=== PATIENT | female | born 1980 | race Two or more races ===

== ENCOUNTER 2016-09-25 12:20 | Observation (INO) | payer MEDICAID ==
[~2016-09-25 12:20] MED LIST: ACET-1079 PO
[2016-09-25] MEDS ORDERED: PREN-153 OR (13:05)
[2016-09-25] MEDS ORDERED: ASPI81CH43 GT (13:06)
[2016-09-25] MEDS ORDERED: DOCU-94 PO (13:06)
[2016-09-25 13:19] LABS: Urine Bilirubin Negative (Negative); Urine Color Yellow (Yellow); Urine Glucose Normal (Normal); Urine Ketone Negative (Negative); Urine Nitrite Negative (Negative); Urine RBC 8 /hpf (0 - 4); Urine Squamous Epithelial Cell FEW /hpf (<5); Urine Urobilinogen Normal (Negative); Urine pH 7.5 (5.0-8.0)
[2016-09-25 13:20] LABS: Basophils # (auto) 0 uL; Basophils % (auto) 0.1 % (0.0-2.0); Eosinophils # (auto) 0.1 uL; Eosinophils % (auto) 0.5 % (0.0-7.0); Hematocrit 36.2 % (36.0-46.0); Hemoglobin 12.3 g/dL (12.2-16.2); Lymphocytes # (auto) 1.2 uL; Lymphocytes % (auto) 9.8 % (10.0-50.0); Mean Corpuscular Hemoglobin 32.2 pg (28.0-32.0); Mean Corpuscular Hgb Conc. 34.1 g/dL (32.0-36.0); Mean Corpuscular Volume 94.6 fL (80.0-100.0); Mean Platelet Volume 9.8 fL (7.4-10.4); Monocytes # (auto) 0.9 uL; Monocytes % (auto) 7.3 % (0.0-12.0); Neutrophils # (auto) 10.1 uL; Neutrophils % (auto) 82.3 % (37.0-80.0); Platelet Count (auto) 213 10^3/uL (140-450); Red Cell Distribution Width 13.3 % (11.6-16.0); White Blood Cell 12.2 10^3/uL (4.4-10.8)
[2016-09-25 13:20] LABS: Urine Blood 2+ /uL (Negative)
[2016-09-25 13:39] LABS: Albumin 2.6 g/dL (3.4-5.0); BUN/Creatinine Ratio 15.4; Bilirubin, Total 0.1 mg/dL (0.2-1.0); Calcium 8.8 mg/dL (8.5-10.1); Potassium 4.4 mmol/L (3.5-5.1); Total Protein 6.4 g/dL (6.4-8.2); Uric Acid 3.7 mg/dL (2.6-6.0)
[2016-09-25 13:47] LABS: INR 0.94 (0.9-1.15); Partial Thromboplastin Time 27.5 sec (22.64-33.71); Prothrombin Time 9.7 sec (9.37-12.3)
== END 2016-09-25 14:10 | disposition home or self-care (01) | DRG 566 ==
LOC: LDRP 12:20
PROVIDERS: ADMIT Specialist; ATTEND Specialist
DX: O13.3 Gestational [pregnancy-induced] hypertension without significant proteinuria, third trimester (principal); Z3A.30 30 weeks gestation of pregnancy
CPT/HCPCS: 36415; 59025; 76818; 80053; 81001; 81002; 84550; 85025; 85379; 85610; 85730; G0378

== ENCOUNTER 2016-09-28 10:55 | Observation (INO) | payer MEDICAID ==
[~2016-09-28 10:55] MED LIST changes: +ASPI81CH43 GT; +DOCU-94 PO; +PREN-153 OR
== END 2016-09-28 12:15 | disposition home or self-care (01) | DRG 955 ==
LOC: LDRP 10:55
PROVIDERS: ADMIT Specialist; ATTEND Specialist
DX: O26.899 Other specified pregnancy related conditions, unspecified trimester (principal)
CPT/HCPCS: 59025; 76818; 81002; G0378

== ENCOUNTER 2016-10-01 14:00 | Observation (INO) | payer MEDICAID | END 2016-10-01 15:50 | disposition home or self-care (01) | DRG 566 | LOC: LDRP 14:00 | PROVIDERS: ADMIT Specialist; ATTEND Specialist | DX: O62.9 Abnormality of forces of labor, unspecified (principal); O26.893 Other specified pregnancy related conditions, third trimester; M54.5 Low back pain; R11.0 Nausea; Z3A.31 31 weeks gestation of pregnancy | CPT/HCPCS: 59025; 76818; 81002; G0378 ==

== ENCOUNTER 2016-10-04 10:50 | Observation (INO) | payer MEDICAID | END 2016-10-04 13:30 | disposition home or self-care (01) | DRG 566 | LOC: LDRP 10:50 | PROVIDERS: ADMIT Obstetrics & Gynecology; ATTEND Obstetrics & Gynecology | DX: O42.913 Preterm premature rupture of membranes, unspecified as to length of time between rupture and onset of labor, third trimester (principal); O60.03 Preterm labor without delivery, third trimester; O26.893 Other specified pregnancy related conditions, third trimester; R51 Headache; O13.3 Gestational [pregnancy-induced] hypertension without significant proteinuria, third trimester; O62.9 Abnormality of forces of labor, unspecified; Z3A.32 32 weeks gestation of pregnancy | CPT/HCPCS: 59025; 76818; 81002; G0378 ==

== ENCOUNTER 2016-10-07 18:53 | Observation (INO) | payer MEDICAID ==
[2016-10-07] MEDS ORDERED: ACETAMINOPHEN 325 MG TAB PO ONE ×2 (20:31→20:45)
[2016-10-07] MEDS ORDERED: NIFEdipine 10 MG CAP ONE (20:31)
[2016-10-07] MEDS ORDERED: NIFEdipine 10 MG CAP PO ONE (20:45)
[2016-10-07 21:02] LABS: Basophils # (auto) 0 uL; Basophils % (auto) 0.2 % (0.0-2.0); Eosinophils # (auto) 0.1 uL; Eosinophils % (auto) 0.9 % (0.0-7.0); Hematocrit 37.5 % (36.0-46.0); Hemoglobin 12.9 g/dL (12.2-16.2); Lymphocytes # (auto) 1.8 uL; Lymphocytes % (auto) 16.8 % (10.0-50.0); Mean Corpuscular Hemoglobin 32.1 pg (28.0-32.0); Mean Corpuscular Hgb Conc. 34.4 g/dL (32.0-36.0); Mean Corpuscular Volume 93.3 fL (80.0-100.0); Mean Platelet Volume 10.6 fL (7.4-10.4); Monocytes # (auto) 0.6 uL; Monocytes % (auto) 5.2 % (0.0-12.0); Neutrophils # (auto) 8.4 uL; Neutrophils % (auto) 76.9 % (37.0-80.0); Platelet Count (auto) 192 10^3/uL (140-450); Red Cell Distribution Width 13.9 % (11.6-16.0); White Blood Cell 10.9 10^3/uL (4.4-10.8)
[2016-10-07 21:25] LABS: INR 0.95 (0.9-1.15); Partial Thromboplastin Time 28.4 sec (22.64-33.71); Prothrombin Time 9.8 sec (9.37-12.3)
[2016-10-07 21:42] LABS: Albumin 2.7 g/dL (3.4-5.0); BUN/Creatinine Ratio 14.8; Bilirubin, Total 0.1 mg/dL (0.2-1.0); Calcium 8.6 mg/dL (8.5-10.1); Potassium 3.9 mmol/L (3.5-5.1); Total Protein 6.7 g/dL (6.4-8.2); Uric Acid 3.5 mg/dL (2.6-6.0)
== END 2016-10-07 22:07 | disposition home or self-care (01) | DRG 566 ==
LOC: LDRP 18:53
PROVIDERS: ADMIT Obstetrics & Gynecology; ATTEND Obstetrics & Gynecology
DX: O26.893 Other specified pregnancy related conditions, third trimester (principal); O09.523 Supervision of elderly multigravida, third trimester; M54.9 Dorsalgia, unspecified; R51 Headache; O62.9 Abnormality of forces of labor, unspecified; O13.3 Gestational [pregnancy-induced] hypertension without significant proteinuria, third trimester; Z3A.32 32 weeks gestation of pregnancy
CPT/HCPCS: 36415; 59025; 76818; 80053; 81002; 84550; 85025; 85362; 85610; 85730; G0378

== ENCOUNTER 2016-10-10 11:00 | Observation (INO) | payer MEDICAID ==
[~2016-10-10] VITALS: Ht 165.1 cm; Wt 95.3 kg
[2016-10-10] MEDS ORDERED: LABETALOL HCL 200 MG TAB PO ONE (13:15)
[2016-10-10 13:32] LABS: Basophils # (auto) 0 uL; Basophils % (auto) 0.3 % (0.0-2.0); Eosinophils # (auto) 0 uL; Eosinophils % (auto) 0.2 % (0.0-7.0); Hemoglobin 13.3 g/dL (12.2-16.2); Lymphocytes # (auto) 1.3 uL; Lymphocytes % (auto) 11.7 % (10.0-50.0); Mean Corpuscular Hemoglobin 32.5 pg (28.0-32.0); Mean Corpuscular Hgb Conc. 35.1 g/dL (32.0-36.0); Mean Corpuscular Volume 92.7 fL (80.0-100.0); Mean Platelet Volume 10.3 fL (7.4-10.4); Monocytes # (auto) 0.6 uL; Monocytes % (auto) 5.7 % (0.0-12.0); Neutrophils # (auto) 8.8 uL; Neutrophils % (auto) 82.1 % (37.0-80.0); Platelet Count (auto) 189 10^3/uL (140-450); Red Cell Distribution Width 13.3 % (11.6-16.0); White Blood Cell 10.8 10^3/uL (4.4-10.8)
[2016-10-10 13:44] LABS: Albumin 2.9 g/dL (3.4-5.0); BUN/Creatinine Ratio 11.7; Calcium 8.8 mg/dL (8.5-10.1); Potassium 4.6 mmol/L (3.5-5.1)
[2016-10-10 13:46] LABS: INR 0.96 (0.9-1.15); Partial Thromboplastin Time 28.1 sec (22.64-33.71); Prothrombin Time 9.9 sec (9.37-12.3)
[2016-10-10 13:47] LABS: Bilirubin, Total 0.3 mg/dL (0.2-1.0); Total Protein 6.7 g/dL (6.4-8.2)
[2016-10-10 14:46] LABS: Uric Acid 4.5 mg/dL (2.6-6.0)
== END 2016-10-10 14:45 | disposition home or self-care (01) | DRG 566 ==
LOC: EEVIPCON 11:00 → LDRP 11:00
PROVIDERS: ADMIT Obstetrics & Gynecology; ATTEND Obstetrics & Gynecology
DX: O13.3 Gestational [pregnancy-induced] hypertension without significant proteinuria, third trimester (principal); O26.893 Other specified pregnancy related conditions, third trimester; M54.9 Dorsalgia, unspecified; M25.519 Pain in unspecified shoulder; Z3A.32 32 weeks gestation of pregnancy
CPT/HCPCS: 36415; 59025; 76818; 80053; 81002; 84156; 84550; 85025; 85379; 85610; 85730; G0378

== ENCOUNTER 2016-10-12 12:40 | Observation (INO) | payer MEDICAID ==
[2016-10-12 14:02] LABS: Urine RBC None Seen /hpf (0 - 4)
[2016-10-12 14:34] LABS: Urine Bilirubin Negative (Negative); Urine Blood Negative /uL (Negative); Urine Glucose Normal (Normal); Urine Ketone Negative (Negative); Urine Nitrite Negative (Negative); Urine Squamous Epithelial Cell FEW /hpf (<5); Urine Urobilinogen Normal (Negative)
[2016-10-12 14:35] LABS: Urine Color Straw (Yellow)
[2016-10-12 14:40] LABS: Basophils # (auto) 0 uL; Basophils % (auto) 0.3 % (0.0-2.0); Eosinophils # (auto) 0.1 uL; Eosinophils % (auto) 0.7 % (0.0-7.0); Hematocrit 37.6 % (36.0-46.0); Hemoglobin 12.7 g/dL (12.2-16.2); Lymphocytes # (auto) 1.3 uL; Lymphocytes % (auto) 11.6 % (10.0-50.0); Mean Corpuscular Hemoglobin 32.1 pg (28.0-32.0); Mean Corpuscular Hgb Conc. 33.8 g/dL (32.0-36.0); Mean Corpuscular Volume 94.9 fL (80.0-100.0); Mean Platelet Volume 10.8 fL (7.4-10.4); Monocytes # (auto) 0.5 uL; Monocytes % (auto) 4.6 % (0.0-12.0); Neutrophils # (auto) 9.2 uL; Neutrophils % (auto) 82.8 % (37.0-80.0); Platelet Count (auto) 196 10^3/uL (140-450); Red Cell Distribution Width 13.6 % (11.6-16.0); White Blood Cell 11.1 10^3/uL (4.4-10.8)
[2016-10-12 15:01] LABS: INR 0.93 (0.9-1.15); Partial Thromboplastin Time 27.1 sec (22.64-33.71); Prothrombin Time 9.6 sec (9.37-12.3)
[2016-10-12 15:11] LABS: Albumin 2.9 g/dL (3.4-5.0); BUN/Creatinine Ratio 8.9; Bilirubin, Total 0.2 mg/dL (0.2-1.0); Calcium 9.2 mg/dL (8.5-10.1); Potassium 3.8 mmol/L (3.5-5.1); Total Protein 6.7 g/dL (6.4-8.2)
== END 2016-10-12 14:15 | disposition home or self-care (01) | DRG 566 ==
LOC: LDRP 12:40
PROVIDERS: ADMIT Specialist; ATTEND Specialist
DX: O13.3 Gestational [pregnancy-induced] hypertension without significant proteinuria, third trimester (principal); O26.893 Other specified pregnancy related conditions, third trimester; G43.909 Migraine, unspecified, not intractable, without status migrainosus; Z3A.33 33 weeks gestation of pregnancy
CPT/HCPCS: 36415; 59025; 76818; 80053; 81001; 81002; 84550; 85025; 85610; 85730; G0378; G0434

== ENCOUNTER 2016-10-15 13:55 | Observation (INO) | payer MEDICAID | END 2016-10-15 15:05 | disposition home or self-care (01) | DRG 566 | LOC: LDRP 13:55 | PROVIDERS: ADMIT Obstetrics & Gynecology; ATTEND Obstetrics & Gynecology | DX: O26.893 Other specified pregnancy related conditions, third trimester (principal); R10.9 Unspecified abdominal pain; O10.913 Unspecified pre-existing hypertension complicating pregnancy, third trimester; Z3A.33 33 weeks gestation of pregnancy | CPT/HCPCS: 59025; 81002; G0378 ==

== ENCOUNTER 2016-10-19 12:40 | Observation (INO) | payer MEDICAID | END 2016-10-19 14:30 | disposition home or self-care (01) | DRG 566 | LOC: LDRP 12:40 | PROVIDERS: ADMIT Specialist; ATTEND Specialist | DX: O10.913 Unspecified pre-existing hypertension complicating pregnancy, third trimester (principal); O26.899 Other specified pregnancy related conditions, unspecified trimester; R10.9 Unspecified abdominal pain; Z3A.34 34 weeks gestation of pregnancy | CPT/HCPCS: 59025; 81002; 84156; G0378 ==

== ENCOUNTER 2016-10-21 14:00 | Observation (INO) | payer MEDICAID | END 2016-10-21 17:40 | disposition home or self-care (01) | DRG 566 | LOC: LDRP 14:00 | PROVIDERS: ADMIT Specialist; ATTEND Specialist | DX: O13.3 Gestational [pregnancy-induced] hypertension without significant proteinuria, third trimester (principal); O26.893 Other specified pregnancy related conditions, third trimester; K21.9 Gastro-esophageal reflux disease without esophagitis; M54.9 Dorsalgia, unspecified; O21.2 Late vomiting of pregnancy; Z3A.34 34 weeks gestation of pregnancy | CPT/HCPCS: 59025; 76818; 81002; 82962; 96365; 96366; G0378 ==

== ENCOUNTER 2016-10-23 13:55 | Observation (INO) | payer MEDICAID ==
[2016-10-23 15:00] LABS: Basophils # (auto) 0 uL; Basophils % (auto) 0.3 % (0.0-2.0); Eosinophils # (auto) 0.1 uL; Eosinophils % (auto) 0.5 % (0.0-7.0); Hematocrit 35.3 % (36.0-46.0); Hemoglobin 12.2 g/dL (12.2-16.2); Lymphocytes # (auto) 1.3 uL; Lymphocytes % (auto) 12.6 % (10.0-50.0); Mean Corpuscular Hemoglobin 32.5 pg (28.0-32.0); Mean Corpuscular Hgb Conc. 34.6 g/dL (32.0-36.0); Mean Platelet Volume 10.7 fL (7.4-10.4); Monocytes # (auto) 0.4 uL; Monocytes % (auto) 4.1 % (0.0-12.0); Neutrophils # (auto) 8.7 uL; Neutrophils % (auto) 82.5 % (37.0-80.0); Platelet Count (auto) 184 10^3/uL (140-450); Red Cell Distribution Width 13.6 % (11.6-16.0); White Blood Cell 10.5 10^3/uL (4.4-10.8)
[2016-10-23 15:22] LABS: INR 0.96 (0.9-1.15); Partial Thromboplastin Time 29.2 sec (22.64-33.71); Prothrombin Time 9.9 sec (9.37-12.3)
[2016-10-23 15:27] LABS: Albumin 2.7 g/dL (3.4-5.0); BUN/Creatinine Ratio 16.3; Bilirubin, Total 0.3 mg/dL (0.2-1.0); Calcium 8.5 mg/dL (8.5-10.1); Potassium 3.8 mmol/L (3.5-5.1); Total Protein 6.4 g/dL (6.4-8.2); Uric Acid 4.1 mg/dL (2.6-6.0)
[2016-10-23 15:47] LABS: Urine Bilirubin Negative (Negative); Urine Blood Negative /uL (Negative); Urine Color Yellow (Yellow); Urine Glucose Normal (Normal); Urine Ketone Negative (Negative); Urine Mucus FEW (None Seen); Urine Nitrite Negative (Negative); Urine RBC 3 /hpf (0 - 4); Urine Squamous Epithelial Cell MOD /hpf (<5); Urine Urobilinogen Normal (Negative); Urine pH 6.5 (5.0-8.0)
== END 2016-10-23 15:45 | disposition home or self-care (01) | DRG 566 ==
LOC: LDRP 13:55
PROVIDERS: ADMIT Specialist; ATTEND Specialist
DX: O13.3 Gestational [pregnancy-induced] hypertension without significant proteinuria, third trimester (principal); O26.893 Other specified pregnancy related conditions, third trimester; G43.909 Migraine, unspecified, not intractable, without status migrainosus; Z3A.34 34 weeks gestation of pregnancy
CPT/HCPCS: 36415; 59025; 76818; 80053; 81001; 81002; 84550; 85025; 85362; 85610; 85730; G0378

== ENCOUNTER 2016-10-26 12:25 | Observation (INO) | payer MEDICAID | END 2016-10-26 14:25 | disposition home or self-care (01) | DRG 566 | LOC: LDRP 12:25 | PROVIDERS: ADMIT Obstetrics & Gynecology; ATTEND Obstetrics & Gynecology | DX: O10.913 Unspecified pre-existing hypertension complicating pregnancy, third trimester (principal); O26.893 Other specified pregnancy related conditions, third trimester; R10.13 Epigastric pain; O62.9 Abnormality of forces of labor, unspecified; O09.523 Supervision of elderly multigravida, third trimester; Z3A.35 35 weeks gestation of pregnancy | CPT/HCPCS: 59025; 76818; 81002; G0378 ==

== ENCOUNTER 2016-10-29 13:58 | Observation (INO) | payer MEDICAID | END 2016-10-29 15:50 | disposition home or self-care (01) | DRG 566 | LOC: LDRP 13:58 | PROVIDERS: ADMIT Specialist; ATTEND Specialist | DX: O13.3 Gestational [pregnancy-induced] hypertension without significant proteinuria, third trimester (principal); O26.893 Other specified pregnancy related conditions, third trimester; R10.9 Unspecified abdominal pain; O09.523 Supervision of elderly multigravida, third trimester; O62.9 Abnormality of forces of labor, unspecified; Z3A.35 35 weeks gestation of pregnancy | CPT/HCPCS: 76818; G0378; 59025; 81002 ==

== ENCOUNTER 2016-11-02 11:00 | Observation (INO) | payer MEDICAID | END 2016-11-02 12:05 | disposition home or self-care (01) | DRG 566 | LOC: LDRP 11:00 | PROVIDERS: ADMIT Specialist; ATTEND Specialist | DX: O13.3 Gestational [pregnancy-induced] hypertension without significant proteinuria, third trimester (principal); Z3A.36 36 weeks gestation of pregnancy | CPT/HCPCS: 59025; 76818; 81002; G0378 ==

== ENCOUNTER 2016-11-06 10:50 | Observation (INO) | payer MEDICAID | END 2016-11-06 12:32 | disposition home or self-care (01) | DRG 566 | LOC: LDRP 10:50 | PROVIDERS: ADMIT Obstetrics & Gynecology; ATTEND Obstetrics & Gynecology | DX: O26.893 Other specified pregnancy related conditions, third trimester (principal); N89.8 Other specified noninflammatory disorders of vagina; Z3A.36 36 weeks gestation of pregnancy | CPT/HCPCS: 59025; 76818; 81002; G0378 ==

== ENCOUNTER 2016-11-09 14:10 | Observation (INO) | payer MEDICAID | END 2016-11-09 16:10 | disposition home or self-care (01) | DRG 566 | LOC: LDRP 14:10 | PROVIDERS: ADMIT Specialist; ATTEND Specialist | DX: O13.3 Gestational [pregnancy-induced] hypertension without significant proteinuria, third trimester (principal); O26.893 Other specified pregnancy related conditions, third trimester; R10.13 Epigastric pain; Z3A.37 37 weeks gestation of pregnancy | CPT/HCPCS: 59025; 76818; 81002; G0378 ==

== ENCOUNTER 2016-11-13 10:55 | Observation (INO) | payer MEDICAID ==
[2016-11-13] MEDS ORDERED: PREN-153 OR (11:06)
[2016-11-13] MEDS ORDERED: LABE100T PO (11:07)
== END 2016-11-13 12:00 | disposition home or self-care (01) | DRG 955 ==
LOC: LDRP 10:55
PROVIDERS: ADMIT Obstetrics & Gynecology; ATTEND Obstetrics & Gynecology
DX: O26.899 Other specified pregnancy related conditions, unspecified trimester (principal); R10.9 Unspecified abdominal pain; Z3A.00 Weeks of gestation of pregnancy not specified
CPT/HCPCS: 59025; 76818; 81002; G0378

== ENCOUNTER 2016-11-16 11:35 | Inpatient (IN) | payer MEDICAID ==
[~2016-11-16] VITALS: Ht 1 cm; Wt 0.5 kg
[2016-11-16] VITALS (10 sets, daily range): BP systolic 106–134; BP diastolic 64–88
[~2016-11-16 11:35] MED LIST changes: +LABE100T PO
[2016-11-16 12:58] LABS: Urine RBC None Seen /hpf (0 - 4)
[2016-11-16 13:02] LABS: Basophils # (auto) 0 uL; Basophils % (auto) 0.1 % (0.0-2.0); Eosinophils # (auto) 0.1 uL; Eosinophils % (auto) 0.7 % (0.0-7.0); Hematocrit 39.6 % (36.0-46.0); Hemoglobin 13.5 g/dL (12.2-16.2); Lymphocytes # (auto) 1.2 uL; Lymphocytes % (auto) 14.1 % (10.0-50.0); Mean Corpuscular Hemoglobin 31.8 pg (28.0-32.0); Mean Corpuscular Hgb Conc. 34.1 g/dL (32.0-36.0); Mean Corpuscular Volume 93.3 fL (80.0-100.0); Mean Platelet Volume 10.7 fL (7.4-10.4); Monocytes # (auto) 0.4 uL; Monocytes % (auto) 4.4 % (0.0-12.0); Neutrophils # (auto) 7.1 uL; Neutrophils % (auto) 80.7 % (37.0-80.0); Platelet Count (auto) 173 10^3/uL (140-450); Red Cell Distribution Width 14.4 % (11.6-16.0); SUSPECT VIEW TRANSMISSION; White Blood Cell 8.8 10^3/uL (4.4-10.8)
[2016-11-16 13:04] LABS: Urine Bilirubin Negative (Negative); Urine Blood Negative /uL (Negative); Urine Color Yellow (Yellow); Urine Glucose Normal (Normal); Urine Ketone Negative (Negative); Urine Nitrite Negative (Negative); Urine Squamous Epithelial Cell FEW /hpf (<5); Urine Urobilinogen Normal (Negative)
[2016-11-16 13:23] LABS: Albumin 2.9 g/dL (3.4-5.0); BUN/Creatinine Ratio 12.1; Bilirubin, Total 0.3 mg/dL (0.2-1.0); Calcium 9.1 mg/dL (8.5-10.1); Potassium 4.1 mmol/L (3.5-5.1); Uric Acid 4.9 mg/dL (2.6-6.0)
[2016-11-16 13:32] LABS: Partial Thromboplastin Time 26.3 sec (22.64-33.71); Prothrombin Time 9.6 sec (9.37-12.3)
[2016-11-16 13:44] LABS: INR 0.89 (0.9-1.15)
[2016-11-16] MEDS ORDERED: LACTATED RINGER'S 1,000 ML IV SCH ×2 (13:56)
[2016-11-16] MEDS ORDERED: fentaNYL CITRATE 100 MCG/2 ML VL ONE (14:52)
[2016-11-16] MEDS ORDERED: SODIUM CHLORIDE LOCK 20 ML ONE (14:52)
[2016-11-16] MEDS ORDERED: MORPHINE SULF(PF) 0.5MG/ML 10ML VIAL ONE (14:52)
[2016-11-16] MEDS ORDERED: ePHEDrine SULFATE 50 MG/ML AMP ONE (14:52)
[2016-11-16] MEDS ORDERED: MIDAZOLAM HCL 1MG/1ML-2 ML VIAL ONE (14:52)
[2016-11-16] MEDS ORDERED: ceFAZolin 1GM VL ONE (14:52)
[2016-11-16] MEDS ORDERED: OXYTOCIN 10 UNIT/ML 10ML VIAL ONE (14:53)
[2016-11-16] MEDS: LACTATED RINGER'S 1,000 ML IV SCH (16:25)
[2016-11-16] MEDS ORDERED: METOCLOPRAMIDE HCL 5MG/ml INJ 2ml VIAL IV ONE (16:30)
[2016-11-16] MEDS ORDERED: KETOROLAC TROMETH 30 MG/ML 1ML VIAL IV ONE (16:30)
[2016-11-16] MEDS ORDERED: HYDROmorphone HCL 2 MG/ML VL IV PRN (16:30)
[2016-11-16] MEDS ORDERED: NALOXONE HCL 0.4 MG/ML VIAL IV PRN ×2 (16:30→16:59)
[2016-11-16] MEDS ORDERED: LACT. RINGERS/OXYTOCIN 20UNITS 1,000 ML IV ONE (18:31)
[2016-11-16] MEDS ORDERED: KETOROLAC TROMETH 30 MG/ML 1ML VIAL ONE (19:42)
[2016-11-16] MEDS ORDERED: KETOROLAC TROMETH 30 MG/ML 1ML VIAL IV PRN (19:45)
[2016-11-16] MEDS: HYDROmorphone HCL 2 MG/ML VL IV PRN (20:15)
[2016-11-16] MEDS: LABETALOL HCL 200 MG TAB PO SCH (22:00)
[2016-11-17] VITALS (9 sets, daily range): BP systolic 106–140; BP diastolic 60–80
[2016-11-17] MEDS: HYDROmorphone HCL 2 MG/ML VL IV PRN (00:21)
[2016-11-17] MEDS: LACTATED RINGER'S 1,000 ML IV SCH ×3 (00:25→16:25)
[2016-11-17] MEDS: diphenhdrAMINE HCL 50 MG/1 ML VL IV PRN ×2 (01:23→08:30)
[2016-11-17] MEDS ORDERED: SIMETHICONE 80 MG CHEWABLE TABLET PO PRN ×2 (04:30→12:00)
[2016-11-17 06:27] LABS: Basophils # (auto) 0 uL; Basophils % (auto) 0.1 % (0.0-2.0); Eosinophils # (auto) 0.1 uL; Eosinophils % (auto) 0.6 % (0.0-7.0); Hematocrit 35.1 % (36.0-46.0); Hemoglobin 12.3 g/dL (12.2-16.2); Lymphocytes # (auto) 1.1 uL; Lymphocytes % (auto) 11.8 % (10.0-50.0); Mean Corpuscular Hemoglobin 32.8 pg (28.0-32.0); Mean Corpuscular Hgb Conc. 34.9 g/dL (32.0-36.0); Mean Corpuscular Volume 94.2 fL (80.0-100.0); Mean Platelet Volume 11.3 fL (7.4-10.4); Monocytes # (auto) 0.5 uL; Monocytes % (auto) 5.4 % (0.0-12.0); Neutrophils # (auto) 7.6 uL; Neutrophils % (auto) 82.1 % (37.0-80.0); Platelet Count (auto) 149 10^3/uL (140-450); Red Cell Distribution Width 14.2 % (11.6-16.0); White Blood Cell 9.3 10^3/uL (4.4-10.8)
[2016-11-17] MEDS: ceFAZolin 1GM/50ML D5W 50 ML IV SCH ×3 (08:00→15:40)
[2016-11-17] MEDS: LABETALOL HCL 200 MG TAB PO SCH (10:00)
[2016-11-17] MEDS ORDERED: HYDROcodone-ACET 5/325MG TAB PO PRN (12:00)
[2016-11-17] MEDS: IBUPROFEN 800 MG TAB PO PRN ×2 (12:16→20:45)
[2016-11-17] MEDS: HYDROcodone-ACET 5/325MG TAB PO PRN ×2 (19:42→23:45)
[2016-11-17] MEDS: DOCUSATE SOD 100 MG CAP PO SCH (22:10)
[2016-11-18] MEDS: LACTATED RINGER'S 1,000 ML IV SCH ×2 (00:25→08:25)
[2016-11-18 03:00] VITALS: BP 106/65
[2016-11-18] MEDS: HYDROcodone-ACET 10/325MG TAB PO PRN ×4 (03:38→21:11)
[2016-11-18] MEDS: IBUPROFEN 800 MG TAB PO PRN ×2 (05:51→16:00)
[2016-11-18 07:30] VITALS: BP 115/66
[2016-11-18] MEDS: DOCUSATE SOD 100 MG CAP PO SCH ×2 (09:59→21:51)
[2016-11-18 12:14] VITALS: BP 131/85
[2016-11-18 16:30] VITALS: BP 130/77
[2016-11-18 19:00] VITALS: BP 126/84
[2016-11-18 23:00] VITALS: BP 139/83
[2016-11-19] MEDS: IBUPROFEN 800 MG TAB PO PRN ×2 (00:04→08:02)
[2016-11-19] MEDS: HYDROcodone-ACET 10/325MG TAB PO PRN ×3 (01:14→10:30)
[2016-11-19 03:00] VITALS: BP 124/65
[2016-11-19 07:30] VITALS: BP 128/75
[2016-11-19] MEDS: DOCUSATE SOD 100 MG CAP PO SCH (10:27)
[2016-11-19 12:30] VITALS: BP 133/93
== END 2016-11-19 13:45 | disposition home or self-care (01) | DRG 540 ==
LOC: LDRP 11:35 → OBSVTOIN 12:50 → LDRP 13:25
PROVIDERS: ADMIT Specialist; ATTEND Specialist
PROC: 10D00Z1 Extraction of Products of Conception, Low, Open Approach (ICD-10-PCS; principal; 2016-11-16 15:06)
DX: O34.211 Maternal care for low transverse scar from previous cesarean delivery (principal); D25.9 Leiomyoma of uterus, unspecified; O13.9 Gestational [pregnancy-induced] hypertension without significant proteinuria, unspecified trimester; O75.89 Other specified complications of labor and delivery; O09.523 Supervision of elderly multigravida, third trimester; Z37.0 Single live birth; Z3A.38 38 weeks gestation of pregnancy
CPT/HCPCS: 36415; 51702; 59025; 76818; 80053; 81001; 81002; 84550; 85025; 85362; 85379; 85610; 85730; 94762; 96361; 96365; 96366; 96374; 96375; G0378; J0690; J1885; J2250; J2590

== ENCOUNTER 2016-11-21 13:13 | Emergency (ER) | payer MEDICAID ==
[~2016-11-21] VITALS: Ht 165.1 cm; Wt 97.1 kg
[2016-11-21] MEDS ORDERED: MORPHINE SULF INJ 2 MG/ML SYRINGE 1ML IM ONE (13:45)
[2016-11-21] MEDS ORDERED: ONDANSETRON HCL 4 MG/2 ML VIAL ONE (14:07)
[2016-11-21] MEDS ORDERED: ONDANSETRON HCL 4 MG/2 ML VIAL IV ONE (14:15)
[2016-11-21 14:34] LABS: Basophils # (auto) 0 uL; Basophils % (auto) 0.1 % (0.0-2.0); Eosinophils # (auto) 0.1 uL; Hematocrit 37.1 % (36.0-46.0); Hemoglobin 12.4 g/dL (12.2-16.2); Lymphocytes # (auto) 1.1 uL; Lymphocytes % (auto) 16.6 % (10.0-50.0); Mean Corpuscular Hemoglobin 31.5 pg (28.0-32.0); Mean Corpuscular Hgb Conc. 33.3 g/dL (32.0-36.0); Mean Corpuscular Volume 94.5 fL (80.0-100.0); Mean Platelet Volume 9.2 fL (7.4-10.4); Monocytes # (auto) 0.4 uL; Monocytes % (auto) 5.6 % (0.0-12.0); Neutrophils % (auto) 75.7 % (37.0-80.0); Platelet Count (auto) 281 10^3/uL (140-450); Red Cell Distribution Width 13.9 % (11.6-16.0); White Blood Cell 6.5 10^3/uL (4.4-10.8)
[2016-11-21 14:52] LABS: Urine Bilirubin Negative (Negative); Urine Blood Negative /uL (Negative); Urine Color Yellow (Yellow); Urine Glucose Normal (Normal); Urine Ketone TRACE (Negative); Urine Nitrite Negative (Negative); Urine RBC <1 /hpf (0 - 4); Urine Urobilinogen Normal (Negative); Urine pH 6.5 (5.0-8.0)
[2016-11-21 14:54] LABS: Albumin 2.7 g/dL (3.4-5.0); BUN/Creatinine Ratio 15.4; Bilirubin, Total 0.3 mg/dL (0.2-1.0); Calcium 8.7 mg/dL (8.5-10.1); Potassium 3.9 mmol/L (3.5-5.1); Total Protein 7.1 g/dL (6.4-8.2)
[2016-11-21 17:04] VITALS: BP 131/77
[2016-11-21] MEDS ORDERED: IBUPROFEN 600 MG TAB PO ONE (18:30)
== END 2016-11-21 18:36 | disposition home or self-care (01) ==
LOC: ER 13:13
DX: R33.9 Retention of urine, unspecified (principal); F17.210 Nicotine dependence, cigarettes, uncomplicated
CPT/HCPCS: 36415; 51702; 74176; 80053; 81001; 85025; 94761; 96372; 96374; 99285; J2270; J2405

== ENCOUNTER 2017-02-24 18:29 | Emergency (ER) | payer MEDICAID ==
[~2017-02-24] VITALS: Ht 165.1 cm; Wt 85.7 kg
[2017-02-24 21:10] VITALS: BP 149/86
== END 2017-02-25 00:44 | disposition home or self-care (01) ==
LOC: ER 18:31
DX: N89.8 Other specified noninflammatory disorders of vagina (principal); F17.210 Nicotine dependence, cigarettes, uncomplicated; I10 Essential (primary) hypertension; Z79.82 Long term (current) use of aspirin; Z79.899 Other long term (current) drug therapy
CPT/HCPCS: 74176

== ENCOUNTER 2017-08-11 18:29 | Emergency (ER) | payer MEDICAID ==
[~2017-08-11] VITALS: Ht 165.1 cm; Wt 86.2 kg
[2017-08-11 19:39] LABS: Basophils # (auto) 0.1 uL; Basophils % (auto) 0.7 % (0.0-2.0); Eosinophils # (auto) 0 uL; Eosinophils % (auto) 0.5 % (0.0-7.0); Hematocrit 43.1 % (36.0-46.0); Hemoglobin 14.9 g/dL (12.2-16.2); Lymphocytes # (auto) 1.8 uL; Lymphocytes % (auto) 18.6 % (10.0-50.0); Mean Corpuscular Hemoglobin 31.9 pg (28.0-32.0); Mean Corpuscular Hgb Conc. 34.5 g/dL (32.0-36.0); Mean Corpuscular Volume 92.3 fL (80.0-100.0); Monocytes # (auto) 0.6 uL; Neutrophils # (auto) 7.3 uL; Neutrophils % (auto) 74.2 % (37.0-80.0); Nucleated Red Blood Cells % 0.1 %; Platelet Count (auto) 219 10^3/uL (140-450); Red Blood Cells 4.67 10^6/uL (4.0-5.20); Red Cell Distribution Width 13.5 % (11.8-14.3); White Blood Cell 9.8 10^3/uL (4.4-10.8)
[2017-08-11 19:56] LABS: Albumin 4.1 g/dL (3.4-5.0); BUN/Creatinine Ratio 10.2; Bilirubin, Total 0.2 mg/dL (0.2-1.0); Calcium 8.8 mg/dL (8.5-10.1); Potassium 3.3 mmol/L (3.5-5.1); Total Protein 8.2 g/dL (6.4-8.2)
[2017-08-11 20:48] LABS: Urine Bacteria NONE SEEN /hpf (None Seen); Urine Blood Negative /uL (Negative); Urine Specific Gravity 1.002 (1.001-1.035); Urine WBC <1 /hpf (0 - 5)
[2017-08-12] MEDS ORDERED: SODIUM CHLORIDE 0.9% 1,000 ML IV ONE (08:06)
[2017-08-12] MEDS ORDERED: POTASSIUM CHL 10% (20 MEQ/15ML) 15ml ORAL SOLN PO ONE (08:15)
[2017-08-12 09:54] VITALS: BP 123/77
== END 2017-08-12 11:33 | disposition home or self-care (01) ==
LOC: ER 18:29
DX: K80.20 Calculus of gallbladder without cholecystitis without obstruction (principal); E87.6 Hypokalemia; I10 Essential (primary) hypertension; F17.210 Nicotine dependence, cigarettes, uncomplicated; Z79.82 Long term (current) use of aspirin; Z79.899 Other long term (current) drug therapy; Z87.59 Personal history of other complications of pregnancy, childbirth and the puerperium
CPT/HCPCS: 36415; 71046; 74176; 80053; 81001; 82150; 83036; 83690; 83735; 84443; 84702; 85025; 93005; 94761; 96360; 99285; J7030

== ENCOUNTER 2018-04-06 15:00 | Observation (INO) | payer MEDICAID | END 2018-04-06 16:50 | disposition home or self-care (01) | DRG 566 | LOC: LDRP 15:00 | PROVIDERS: ADMIT Obstetrics & Gynecology; ATTEND Obstetrics & Gynecology | DX: O62.9 Abnormality of forces of labor, unspecified (principal); O26.893 Other specified pregnancy related conditions, third trimester; O09.523 Supervision of elderly multigravida, third trimester; Z3A.29 29 weeks gestation of pregnancy; R10.9 Unspecified abdominal pain | CPT/HCPCS: 59025; 76815; 81002; G0378 ==

== ENCOUNTER 2018-04-13 13:55 | Observation (INO) | payer MEDICAID ==
[~2018-04-13 13:55] MED LIST changes: -LABE100T PO; +LABE100T4 PO
== END 2018-04-13 15:55 | disposition home or self-care (01) | DRG 563 ==
LOC: LDRP 13:55
PROVIDERS: ADMIT Specialist; ATTEND Specialist
DX: O60.03 Preterm labor without delivery, third trimester (principal); O09.523 Supervision of elderly multigravida, third trimester; Z3A.30 30 weeks gestation of pregnancy
CPT/HCPCS: 59025; 76817; 76818; 81002; G0378

== ENCOUNTER 2018-04-20 13:55 | Observation (INO) | payer MEDICAID | END 2018-04-20 15:20 | disposition home or self-care (01) | DRG 563 | LOC: LDRP 13:55 | PROVIDERS: ADMIT Obstetrics & Gynecology; ATTEND Obstetrics & Gynecology | DX: O60.03 Preterm labor without delivery, third trimester (principal); O09.523 Supervision of elderly multigravida, third trimester; O62.9 Abnormality of forces of labor, unspecified; Z3A.31 31 weeks gestation of pregnancy | CPT/HCPCS: 59025; 81002; G0378 ==

== ENCOUNTER 2018-04-27 13:55 | Observation (INO) | payer MEDICAID ==
[2018-04-27] MEDS ORDERED: PREN-96 PO (14:57)
== END 2018-04-27 14:40 | disposition home or self-care (01) | DRG 563 ==
LOC: LDRP 13:55
PROVIDERS: ADMIT Specialist; ATTEND Specialist
DX: O60.03 Preterm labor without delivery, third trimester (principal); O09.523 Supervision of elderly multigravida, third trimester; Z3A.32 32 weeks gestation of pregnancy
CPT/HCPCS: 59025; 81002; G0378

== ENCOUNTER 2018-05-13 11:05 | Observation (INO) | payer MEDICAID ==
[~2018-05-13 11:05] MED LIST changes: +PREN-96 PO
== END 2018-05-13 12:44 | disposition home or self-care (01) | DRG 566 ==
LOC: LDRP 11:05
PROVIDERS: ADMIT Specialist; ATTEND Specialist
DX: O24.419 Gestational diabetes mellitus in pregnancy, unspecified control (principal); O26.893 Other specified pregnancy related conditions, third trimester; R11.0 Nausea; O09.523 Supervision of elderly multigravida, third trimester; Z3A.35 35 weeks gestation of pregnancy
CPT/HCPCS: 59025; 76818; 81002; G0378

== ENCOUNTER 2018-05-16 19:32 | Observation (INO) | payer MEDICAID | END 2018-05-16 21:15 | disposition home or self-care (01) | DRG 566 | LOC: LDRP 19:32 | PROVIDERS: ADMIT Obstetrics & Gynecology; ATTEND Obstetrics & Gynecology | DX: O62.9 Abnormality of forces of labor, unspecified (principal); O09.523 Supervision of elderly multigravida, third trimester; Z3A.35 35 weeks gestation of pregnancy | CPT/HCPCS: 59025; 76818; 81002; 82948; 82962; G0378 ==

== ENCOUNTER 2018-05-20 18:55 | Observation (INO) | payer MEDICAID ==
[2018-05-20 21:28] LABS: Basophils # (auto) 0 uL; Basophils % (auto) 0.3 % (0.0-2.0); Eosinophils # (auto) 0 uL; Eosinophils % (auto) 0.3 % (0.0-7.0); Hematocrit 35.4 % (36.0-46.0); Hemoglobin 12.3 g/dL (12.2-16.2); Lymphocytes # (auto) 1.5 uL; Lymphocytes % (auto) 15.6 % (10.0-50.0); Mean Corpuscular Hemoglobin 32.3 pg (28.0-32.0); Mean Corpuscular Hgb Conc. 34.7 g/dL (32.0-36.0); Mean Corpuscular Volume 93.2 fL (80.0-100.0); Monocytes # (auto) 0.6 uL; Monocytes % (auto) 5.7 % (0.0-12.0); Neutrophils # (auto) 7.6 uL; Neutrophils % (auto) 78.1 % (37.0-80.0); Nucleated Red Blood Cells % 0.1 %; Platelet Count (auto) 155 10^3/uL (140-450); White Blood Cell 9.8 10^3/uL (4.4-10.8)
[2018-05-20 21:44] LABS: INR 0.92 (0.9-1.15); Partial Thromboplastin Time 28.1 sec (23.78-33.04); Prothrombin Time 9.9 sec (9.27-12.13)
[2018-05-20 22:35] LABS: Albumin 2.9 g/dL (3.4-5.0); BUN/Creatinine Ratio 19.6; Bilirubin, Total 0.2 mg/dL (0.2-1.0); Calcium 8.6 mg/dL (8.5-10.1); Potassium 4.1 mmol/L (3.5-5.1); Uric Acid 4.5 mg/dL (2.6-6.0)
[2018-05-20 22:38] LABS: Urine Bacteria NONE SEEN /hpf (None Seen); Urine Blood Negative /uL (Negative); Urine Mucus FEW (None Seen); Urine Specific Gravity 1.018 (1.001-1.035); Urine WBC <1 /hpf (0 - 5)
== END 2018-05-20 22:33 | disposition home or self-care (01) | DRG 566 ==
LOC: LDRP 18:55
PROVIDERS: ADMIT Obstetrics & Gynecology; ATTEND Obstetrics & Gynecology
DX: O24.419 Gestational diabetes mellitus in pregnancy, unspecified control (principal); O60.03 Preterm labor without delivery, third trimester; O09.513 Supervision of elderly primigravida, third trimester; Z3A.36 36 weeks gestation of pregnancy
CPT/HCPCS: 36415; 59025; 76818; 80053; 81001; 81002; 82948; 84550; 85025; 85379; 85610; 85730; G0378

== ENCOUNTER 2018-05-23 10:04 | Observation (INO) | payer MEDICAID ==
[2018-05-23 12:40] LABS: Protein, Urine 5.8 mg/dL (0.0-11.9)
== END 2018-05-23 12:50 | disposition home or self-care (01) | DRG 563 ==
LOC: LDRP 10:04
PROVIDERS: ADMIT Specialist; ATTEND Specialist
DX: O60.03 Preterm labor without delivery, third trimester (principal); Z3A.36 36 weeks gestation of pregnancy
CPT/HCPCS: 59025; 76818; 81002; 82948; 82962; 84156; G0378

== ENCOUNTER 2018-05-27 09:41 | Observation (INO) | payer MEDICAID | END 2018-05-27 11:55 | disposition home or self-care (01) | DRG 566 | LOC: LDRP 09:41 | PROVIDERS: ADMIT Obstetrics & Gynecology; ATTEND Obstetrics & Gynecology | DX: O24.419 Gestational diabetes mellitus in pregnancy, unspecified control (principal); O09.523 Supervision of elderly multigravida, third trimester; O42.913 Preterm premature rupture of membranes, unspecified as to length of time between rupture and onset of labor, third trimester; O62.9 Abnormality of forces of labor, unspecified; Z3A.37 37 weeks gestation of pregnancy | CPT/HCPCS: 59025; 76818; 81002; 82962; G0378 ==

== ENCOUNTER 2018-06-02 14:05 | Observation (INO) | payer MEDICAID | END 2018-06-02 15:15 | disposition home or self-care (01) | DRG 566 | LOC: LDRP 14:05 | PROVIDERS: ADMIT Specialist; ATTEND Specialist | DX: O24.419 Gestational diabetes mellitus in pregnancy, unspecified control (principal); O10.913 Unspecified pre-existing hypertension complicating pregnancy, third trimester; O09.523 Supervision of elderly multigravida, third trimester; O62.9 Abnormality of forces of labor, unspecified; Z3A.38 38 weeks gestation of pregnancy; Z87.891 Personal history of nicotine dependence | CPT/HCPCS: 59025; 76818; 81002; G0378 ==

== ENCOUNTER 2018-06-08 14:30 | Inpatient (IN) | payer MEDICAID ==
[~2018-06-08] VITALS: Ht 165.1 cm; Wt 100.2 kg
[2018-06-08] MEDS ORDERED: LACTATED RINGER'S 1,000 ML IV ONE (16:15)
[2018-06-08 16:43] LABS: Basophils # (auto) 0 uL; Basophils % (auto) 0.2 % (0.0-2.0); Eosinophils # (auto) 0 uL; Eosinophils % (auto) 0.3 % (0.0-7.0); Hematocrit 37.8 % (36.0-46.0); Hemoglobin 12.8 g/dL (12.2-16.2); Lymphocytes # (auto) 1.4 uL; Lymphocytes % (auto) 15.3 % (10.0-50.0); Mean Corpuscular Hemoglobin 32.3 pg (28.0-32.0); Mean Corpuscular Volume 94.9 fL (80.0-100.0); Monocytes # (auto) 0.4 uL; Neutrophils # (auto) 7.1 uL; Neutrophils % (auto) 79.2 % (37.0-80.0); Platelet Count (auto) 137 10^3/uL (140-450); Red Blood Cells 3.98 10^6/uL (4.0-5.20); Red Cell Distribution Width 14.4 % (11.8-14.3)
[2018-06-08 16:52] LABS: INR 0.89 (0.9-1.15); Partial Thromboplastin Time 28.3 sec (23.78-33.04); Prothrombin Time 9.6 sec (9.27-12.13)
[2018-06-08 17:01] LABS: Albumin 2.8 g/dL (3.4-5.0); Calcium 8.3 mg/dL (8.5-10.1); Potassium 3.9 mmol/L (3.5-5.1)
[2018-06-08 17:06] LABS: BUN/Creatinine Ratio 14.5; Bilirubin, Total 0.2 mg/dL (0.2-1.0); Total Protein 6.9 g/dL (6.4-8.2)
[2018-06-08] MEDS ORDERED: fentaNYL CITRATE 100 MCG/2 ML VL ONE (18:29)
[2018-06-08] MEDS ORDERED: MORPHINE SULF(PF) 0.5MG/ML 10ML VIAL ONE (18:29)
[2018-06-08] MEDS ORDERED: OXYTOCIN 10 UNIT/ML 10ML VIAL ONE (19:25)
[2018-06-08] MEDS ORDERED: ceFAZolin 1GM VL ONE (19:25)
[2018-06-08] MEDS ORDERED: NALBUPHINE HCL 10 MG/1ml INJECTION SUBCUT ONE (20:00)
[2018-06-08] MEDS ORDERED: HYDROmorphone HCL 2 MG/ML VL IV PRN (20:00)
[2018-06-08] MEDS ORDERED: ONDANSETRON HCL 4 MG/2 ML VIAL IV PRN (20:00)
[2018-06-08] MEDS ORDERED: NALOXONE HCL 0.4 MG/ML VIAL IV PRN (20:00)
[2018-06-08] MEDS ORDERED: HYDROmorphone HCL 2 MG/ML VL ONE (20:01)
[2018-06-08] MEDS: HYDROmorphone HCL 2 MG/ML VL IV PRN ×2 (20:03→20:40)
[2018-06-08] MEDS ORDERED: LACT. RINGERS/OXYTOCIN 20UNITS 1,000 ML IV SCH (20:15)
[2018-06-08 21:12] LABS: Urine Bacteria NONE SEEN /hpf (None Seen); Urine Blood Negative /uL (Negative); Urine Specific Gravity 1.014 (1.001-1.035); Urine WBC 1 /hpf (0 - 5)
[2018-06-08 21:30] VITALS: BP 121/68
[2018-06-08 22:00] VITALS: BP 118/72
[2018-06-08 22:47] LABS: Basophils # (auto) 0 uL; Basophils % (auto) 0.3 % (0.0-2.0); Eosinophils # (auto) 0 uL; Hematocrit 41.4 % (36.0-46.0); Hemoglobin 13.5 g/dL (12.2-16.2); Lymphocytes % (auto) 8.7 % (10.0-50.0); Mean Corpuscular Hemoglobin 31.4 pg (28.0-32.0); Mean Corpuscular Hgb Conc. 32.6 g/dL (32.0-36.0); Mean Corpuscular Volume 96.3 fL (80.0-100.0); Monocytes # (auto) 0.3 uL; Monocytes % (auto) 2.8 % (0.0-12.0); Neutrophils # (auto) 10.4 uL; Neutrophils % (auto) 88.2 % (37.0-80.0); Nucleated Red Blood Cells % 0.1 %; Platelet Count (auto) 126 10^3/uL (140-450); Red Cell Distribution Width 14.6 % (11.8-14.3); White Blood Cell 11.8 10^3/uL (4.4-10.8)
[2018-06-08 23:00] VITALS: BP 111/72
[2018-06-08] MEDS: KETOROLAC TROMETH 30 MG/ML 1ML VIAL IV PRN (23:25)
[2018-06-09] VITALS (11 sets, daily range): BP systolic 101–120; BP diastolic 51–74
[2018-06-09] MEDS: MORPHINE SULFATE 4 MG/ML SYR/VIAL IV PRN ×2 (01:45→05:05)
[2018-06-09] MEDS: LACTATED RINGER'S 1,000 ML IV SCH ×4 (02:50→17:11)
[2018-06-09] MEDS: ceFAZolin 1GM/50ML 50 ML IV SCH ×3 (03:00→19:05)
[2018-06-09] MEDS: KETOROLAC TROMETH 30 MG/ML 1ML VIAL IV PRN (07:14)
[2018-06-09] MEDS ORDERED: HYDROcodone-ACET 5/325MG TAB PO PRN (07:45)
[2018-06-09] MEDS ORDERED: BISACODYL 10 MG RECT SUPP PR PRN (07:45)
[2018-06-09 08:06] LABS: Basophils # (auto) 0 uL; Basophils % (auto) 0.2 % (0.0-2.0); Eosinophils # (auto) 0 uL; Eosinophils % (auto) 0.2 % (0.0-7.0); Hematocrit 37.3 % (36.0-46.0); Hemoglobin 12.6 g/dL (12.2-16.2); Lymphocytes % (auto) 11.4 % (10.0-50.0); Mean Corpuscular Hemoglobin 31.8 pg (28.0-32.0); Mean Corpuscular Hgb Conc. 33.8 g/dL (32.0-36.0); Mean Corpuscular Volume 94.1 fL (80.0-100.0); Monocytes # (auto) 0.5 uL; Monocytes % (auto) 5.6 % (0.0-12.0); Neutrophils # (auto) 7.1 uL; Neutrophils % (auto) 82.6 % (37.0-80.0); Platelet Count (auto) 120 10^3/uL (140-450); Red Blood Cells 3.97 10^6/uL (4.0-5.20); White Blood Cell 8.6 10^3/uL (4.4-10.8)
[2018-06-09] MEDS: HYDROcodone-ACET 5/325MG TAB PO PRN ×3 (09:57→21:03)
[2018-06-09] MEDS: DOCUSATE CALCIUM 240 MG CAP PO SCH (09:57)
[2018-06-09] MEDS: DOCUSATE SOD 100 MG CAP PO SCH ×2 (09:57→23:01)
[2018-06-09] MEDS: SIMETHICONE 80 MG CHEWABLE TABLET PO SCH ×3 (11:30→23:01)
[2018-06-09] MEDS: IBUPROFEN 800 MG TAB PO PRN ×2 (12:52→23:07)
[2018-06-09] MEDS ORDERED: ceFAZolin 1GM/50ML 50 ML IV ONE (18:49)
[2018-06-10] MEDS: HYDROcodone-ACET 5/325MG TAB PO PRN ×5 (02:52→23:32)
[2018-06-10 02:54] VITALS: BP 105/54
[2018-06-10] MEDS: SIMETHICONE 80 MG CHEWABLE TABLET PO SCH ×4 (05:35→21:18)
[2018-06-10 06:40] VITALS: BP 100/63
[2018-06-10] MEDS: IBUPROFEN 800 MG TAB PO PRN ×2 (06:49→16:28)
[2018-06-10] MEDS: DOCUSATE SOD 100 MG CAP PO SCH ×2 (09:30→21:18)
[2018-06-10] MEDS: DOCUSATE CALCIUM 240 MG CAP PO SCH (09:30)
[2018-06-10 11:30] VITALS: BP 109/57
[2018-06-10] MEDS: CEPHALEXIN 250 MG CAP PO SCH ×3 (12:21→23:31)
[2018-06-10 13:16] LABS: Urine Bacteria FEW /hpf (None Seen); Urine Blood 2+ /uL (Negative); Urine Specific Gravity 1.002 (1.001-1.035); Urine WBC <1 /hpf (0 - 5)
[2018-06-10 15:02] VITALS: BP 119/72
[2018-06-10 19:17] VITALS: BP 133/83
[2018-06-10 23:40] VITALS: BP 109/64
[2018-06-11 03:00] VITALS: BP 112/68
[2018-06-11] MEDS: IBUPROFEN 800 MG TAB PO PRN (04:09)
[2018-06-11 05:07] LABS: RPR Non Reactive (Non Reactive)
[2018-06-11] MEDS: SIMETHICONE 80 MG CHEWABLE TABLET PO SCH (05:36)
[2018-06-11] MEDS: CEPHALEXIN 250 MG CAP PO SCH (05:36)
[2018-06-11 06:55] VITALS: BP 123/72
== END 2018-06-11 09:15 | disposition home or self-care (01) | DRG 540 ==
LOC: LDRP 14:30
PROVIDERS: ADMIT Obstetrics & Gynecology; ATTEND Obstetrics & Gynecology
PROC: 10D00Z1 Extraction of Products of Conception, Low, Open Approach (ICD-10-PCS; principal; 2018-06-08 18:41)
DX: O36.8130 Decreased fetal movements, third trimester, not applicable or unspecified (principal); O24.429 Gestational diabetes mellitus in childbirth, unspecified control; O09.523 Supervision of elderly multigravida, third trimester; O34.211 Maternal care for low transverse scar from previous cesarean delivery; Z37.0 Single live birth; Z3A.38 38 weeks gestation of pregnancy; O69.1XX0 Labor and delivery complicated by cord around neck, with compression, not applicable or unspecified; O76 Abnormality in fetal heart rate and rhythm complicating labor and delivery; Z83.3 Family history of diabetes mellitus
CPT/HCPCS: 36415; 51702; 59025; 76818; 80053; 81001; 81002; 82962; 85025; 85610; 85730; 86592; 86850; 86900; 86901; 87086; 94762; 96361; 96365; 96366; 96374; G0378; J0690; J1885; J2590

== ENCOUNTER 2018-12-18 13:07 | Emergency (ER) | payer MEDICAID ==
[~2018-12-18] VITALS: Ht 165.1 cm; Wt 79.4 kg
[~2018-12-18 13:07] MED LIST changes: -PREN-153 OR
[2018-12-18 18:44] LABS: Basophils # (auto) 0.1 uL; Basophils % (auto) 0.8 % (0.0-2.0); Eosinophils # (auto) 0 uL; Eosinophils % (auto) 0.1 % (0.0-7.0); Hematocrit 40.2 % (36.0-46.0); Lymphocytes # (auto) 1.9 uL; Lymphocytes % (auto) 16.7 % (10.0-50.0); Mean Corpuscular Hemoglobin 31.7 pg (28.0-32.0); Mean Corpuscular Hgb Conc. 34.9 g/dL (32.0-36.0); Mean Corpuscular Volume 90.7 fL (80.0-100.0); Monocytes # (auto) 0.6 uL; Monocytes % (auto) 5.8 % (0.0-12.0); Neutrophils # (auto) 8.5 uL; Neutrophils % (auto) 76.6 % (37.0-80.0); Platelet Count (auto) 248 10^3/uL (140-450); Red Blood Cells 4.43 10^6/uL (4.0-5.20); White Blood Cell 11.1 10^3/uL (4.4-10.8)
[2018-12-18 18:50] LABS: Salicylate < 1.7 mg/dL (2.8-20.0)
[2018-12-18 18:51] LABS: Acetaminophen < 2.0 ug/mL (10-30)
[2018-12-18 18:58] LABS: Albumin 4.2 g/dL (3.4-5.0); Anion Gap 8 (5-15); Blood Urea Nitrogen 11 mg/dL (7-18); Carbon Dioxide 26 mmol/L (21-32); Chloride 108 mmol/L (98-107); Glucose 113 mg/dL (74-106); Potassium 3.8 mmol/L (3.5-5.1); Sodium 142 mmol/L (136-145)
[2018-12-18 19:03] LABS: Alanine Aminotransferase 34 U/L (13-56); Alkaline Phosphatase 129 U/L (45-117); Aspartate Aminotransferase 23 U/L (15-37); BUN/Creatinine Ratio 17.2; Bilirubin, Total 0.5 mg/dL (0.2-1.0); Blood Alcohol < 3.0 mg/dL (0-5); GFR African American 134 mL/min; GFR Non-African American 110 mL/min; Total Protein 7.6 g/dL (6.4-8.2)
[2018-12-18] MEDS ORDERED: HALOPERIDOL LACTATE 5 MG/ML INJ VIAL ONE ×2 (20:48→21:25)
[2018-12-18] MEDS: HALOPERIDOL LACTATE 5 MG/ML INJ VIAL IM PRN (20:50)
[2018-12-18] MEDS ORDERED: diphenhdrAMINE HCL 50 MG/1 ML VL ONE (21:25)
[2018-12-18] MEDS ORDERED: LORazepam 2MG/ML-1ML VIAL ONE (21:25)
[2018-12-18] MEDS ORDERED: LORazepam 2MG/ML-1ML VIAL IM ONE (21:30)
[2018-12-18] MEDS ORDERED: diphenhdrAMINE HCL 50 MG/1 ML VL IM ONE (21:30)
[2018-12-18] MEDS ORDERED: HALOPERIDOL LACTATE 5 MG/ML INJ VIAL IM ONE (21:30)
[2018-12-19 00:04] LABS: Alcohol, Urine < 3.0 mg/dL (0-5); Amphetamine Screen, Urine NEGATIVE (NEGATIVE); Barbiturate Scree,Urine NEGATIVE (NEGATIVE); Benzodiazephine Screen, Urine NEGATIVE (NEGATIVE); Cannabinoid Screen, Urine NEGATIVE (NEGATIVE); Cocaine Screen, Urine NEGATIVE (NEGATIVE); Opiate Scree,Urine NEGATIVE (NEGATIVE); Phencyclidine Screen, Urine NEGATIVE (NEGATIVE)
[2018-12-19 01:25] LABS: Urine Bacteria FEW /hpf (None Seen); Urine Blood Negative /uL (Negative); Urine Mucus FEW (None Seen); Urine Specific Gravity 1.017 (1.001-1.035); Urine WBC 1 /hpf (0 - 5)
[2018-12-19] MEDS: HALOPERIDOL LACTATE 5 MG/ML INJ VIAL IM PRN (23:05)
[2018-12-20 11:45] VITALS: BP 130/66
== END 2018-12-20 12:17 | disposition short-term general hospital (02) ==
LOC: EDBD 13:07 → EDUNIT# 13:07 → ER 13:17
DX: F23 Brief psychotic disorder (principal); F32.2 Major depressive disorder, single episode, severe without psychotic features
CPT/HCPCS: 36415; 71045; 80053; 80307; 80320; 80329; 81001; 81025; 82962; 84702; 85025; 93005; 94761; 96372; 99285; J1200; J1630; J2060

== ENCOUNTER 2018-12-22 10:16 | Emergency (ER) | payer MEDICAID ==
[~2018-12-22] VITALS: Ht 165.1 cm; Wt 81.6 kg
[2018-12-22] MEDS ORDERED: SODIUM CHLORIDE 0.9% 1,000 ML IVB ONE (12:26)
[2018-12-22] MEDS ORDERED: LORazepam 2MG/ML-1ML VIAL IV ONE (12:30)
[2018-12-22 12:46] LABS: Urine Bacteria FEW /hpf (None Seen); Urine Blood 2+ /uL (Negative); Urine Specific Gravity 1.003 (1.001-1.035); Urine WBC 5 /hpf (0 - 5)
[2018-12-22 12:58] LABS: Alcohol, Urine < 3.0 mg/dL (0-5); Amphetamine Screen, Urine NEGATIVE (NEGATIVE); Barbiturate Scree,Urine NEGATIVE (NEGATIVE); Benzodiazephine Screen, Urine NEGATIVE (NEGATIVE); Cannabinoid Screen, Urine NEGATIVE (NEGATIVE); Cocaine Screen, Urine NEGATIVE (NEGATIVE); Opiate Scree,Urine NEGATIVE (NEGATIVE); Phencyclidine Screen, Urine NEGATIVE (NEGATIVE)
[2018-12-22 13:35] LABS: Basophils # (auto) 0 uL; Basophils % (auto) 0.3 % (0.0-2.0); Eosinophils # (auto) 0.1 uL; Eosinophils % (auto) 0.5 % (0.0-7.0); Hematocrit 40.3 % (36.0-46.0); Lymphocytes # (auto) 1.8 uL; Lymphocytes % (auto) 15.8 % (10.0-50.0); Mean Corpuscular Hemoglobin 31.5 pg (28.0-32.0); Mean Corpuscular Hgb Conc. 34.8 g/dL (32.0-36.0); Mean Corpuscular Volume 90.6 fL (80.0-100.0); Monocytes # (auto) 0.7 uL; Monocytes % (auto) 5.6 % (0.0-12.0); Neutrophils % (auto) 77.8 % (37.0-80.0); Platelet Count (auto) 252 10^3/uL (140-450); Red Blood Cells 4.45 10^6/uL (4.0-5.20); Red Cell Distribution Width 12.8 % (11.8-14.3); White Blood Cell 11.5 10^3/uL (4.4-10.8)
[2018-12-22 13:50] LABS: Albumin 4.1 g/dL (3.4-5.0); Magnesium 2.5 mg/dL (1.6-2.6)
[2018-12-22 13:52] LABS: Bilirubin, Total 0.5 mg/dL (0.2-1.0); Total Protein 8.3 g/dL (6.4-8.2)
[2018-12-22 13:53] LABS: Salicylate < 1.7 mg/dL (2.8-20.0)
[2018-12-22 13:59] LABS: Acetaminophen < 2.0 ug/mL (10-30)
[2018-12-22 15:00] VITALS: BP 149/99
[2018-12-22] MEDS ORDERED: cefTRIAXone 1GM/50ML D5W 50 ML IV ONE (16:00)
[2018-12-22] MEDS ORDERED: KETOROLAC TROMETH 30 MG/ML 1ML VIAL IV ONE (16:00)
== END 2018-12-22 17:05 | disposition left against medical advice (07) ==
LOC: ER 10:16
DX: S80.12XA Contusion of left lower leg, initial encounter (principal); S80.11XA Contusion of right lower leg, initial encounter; S20.222A Contusion of left back wall of thorax, initial encounter; S20.221A Contusion of right back wall of thorax, initial encounter; I10 Essential (primary) hypertension; N39.0 Urinary tract infection, site not specified; M62.838 Other muscle spasm; M54.2 Cervicalgia; F17.210 Nicotine dependence, cigarettes, uncomplicated; Z79.82 Long term (current) use of aspirin; Z79.899 Other long term (current) drug therapy; Z53.29 Procedure and treatment not carried out because of patient's decision for other reasons; Y08.89XA Assault by other specified means, initial encounter; Y93.89 Activity, other specified; Y99.8 Other external cause status; Y92.89 Other specified places as the place of occurrence of the external cause
CPT/HCPCS: 36415; 70450; 71046; 72125; 80053; 80307; 80329; 81001; 81025; 83735; 85025; 93005; 96361; 96365; 96375; 99284; J0696; J1885; J2060; J7030

== ENCOUNTER 2023-10-14 23:27 | Emergency (ER) | payer SELFPAY ==
[~2023-10-14] VITALS: Ht 165.1 cm; Wt 88.8 kg
[2023-10-15 00:18] LABS: Basophils # (auto) 0 10 ^3/uL (0-0.2); Basophils % (auto) 0.3 % (0.0-2.0); Eosinophils # (auto) 0 10 ^3/uL (0-0.8); Eosinophils % (auto) 0.2 % (0.0-7.0); Hematocrit 43.3 % (36.0-46.0); Hemoglobin 14.6 g/dL (12.2-16.2); Lymphocytes # (auto) 1.6 10 ^3/uL (0.4-5.4); Lymphocytes % (auto) 14.2 % (10.0-50.0); Mean Corpuscular Hemoglobin 30.8 pg (28.0-32.0); Mean Corpuscular Hgb Conc. 33.8 g/dL (32.0-36.0); Mean Corpuscular Volume 91.1 fL (80.0-100.0); Monocytes # (auto) 0.5 10 ^3/uL (0-1.3); Monocytes % (auto) 4.9 % (0.0-12.0); Neutrophils # (auto) 8.8 10 ^3/uL (1.6-8.6); Neutrophils % (auto) 80.4 % (37.0-80.0); Red Blood Cells 4.75 10^6/uL (4.0-5.20); Red Cell Distribution Width 13.5 % (11.8-14.3); White Blood Cell 10.9 10^3/uL (4.4-10.8)
[2023-10-15 00:33] LABS: INR 1.07 (0.9-1.15); Partial Thromboplastin Time 30.5 SEC (24.5-34.5); Prothrombin Time 11.2 sec (9.3-11.8)
[2023-10-15 00:35] LABS: Alanine Aminotransferase 19 U/L (7-40); Albumin 4.8 g/dL (3.2-4.8); Alkaline Phosphatase 104 U/L (46-116); Anion Gap 5 (5-15); Aspartate Aminotransferase 17 U/L (13-40); BUN/Creatinine Ratio 8.2 (10.0-20.0); Bilirubin, Total 0.5 mg/dL (0.2-1.0); Blood Urea Nitrogen 6 mg/dL (9-23); Carbon Dioxide 30 mmol/L (20-30); Chloride 102 mmol/L (98-107); Glucose 134 mg/dL (74-106); Lipase 32 U/L (12-53); Potassium 3.3 mmol/L (3.5-5.1); Sodium 137 mmol/L (136-145); Total Protein 8.2 g/dL (5.7-8.2)
[2023-10-15] MEDS: SODIUM CHLORIDE 0.9% 1,000 ML IV ONE (00:45)
[2023-10-15] MEDS: ACETAMINOPHEN 500 MG TAB PO ONE (00:50)
[2023-10-15 01:18] LABS: Urine Bacteria NONE SEEN /hpf (None Seen); Urine Blood Negative /uL (Negative); Urine Clarity Clear (Clear); Urine Color Colorless (Yellow); Urine Protein, UAD Negative (Negative); Urine Specific Gravity 1.003 (1.001-1.035); Urine Urobilinogen Normal (Negative); Urine WBC <1 /hpf (0 - 5)
[2023-10-15] MEDS ORDERED: CIPR-173 PO (02:29)
[2023-10-15] MEDS ORDERED: IBUP-1454 PO (02:29)
[2023-10-15] MEDS: PIPERACILLIN-TAZOB 3.375GM 100 ML IV ONE (02:40)
[2023-10-15 03:19] VITALS: BP 140/80; PULSE 67; RESP 16; TEMP 98.4; O2SAT 97
== END 2023-10-15 03:24 | disposition home or self-care (01) ==
LOC: ER 23:27
DX: K80.50 Calculus of bile duct without cholangitis or cholecystitis without obstruction (principal); R10.2 Pelvic and perineal pain; F41.9 Anxiety disorder, unspecified; F32.9 Major depressive disorder, single episode, unspecified; F17.210 Nicotine dependence, cigarettes, uncomplicated; Z98.890 Other specified postprocedural states; Z79.899 Other long term (current) drug therapy
CPT/HCPCS: 36415; 71045; 74176; 80053; 81001; 83605; 83690; 84484; 84702; 85025; 85610; 85730; 93005; 96361; 96365; 99285; J2543; J7030